=== PATIENT | female | born 1995 | race Caucasian/White ===

== ENCOUNTER 2016-07-16 07:11 | Emergency (ER) | payer BC ==
[2016-07-16 07:37] VITALS: BP 121/64
--- NOTE | 2016-07-16 07:43 | UC ---
Lower Extremity/Ankle HPI - HPI Summary HPI Summary: LEFT ANKLE INJURY.TRIPPED OVER HER DOG AND ROLLED THE ANKLE. MILD SWELLING AND FAINT BRUISING. Rolled laterally. able to bear weight. LMP 06/30, denies . Here with step Dad. - History of Current Complaint Chief Complaint: UCLowerExtremity Stated Complaint: LEFT ANKLE INJURY Time Seen by Provider: 07/16/16 07:19 Hx Last Menstrual Period: 06/30/16 - Allergies/Home Medications Allergies/Adverse Reactions: Allergies Allergy/AdvReac Type Severity Reaction Status Date / Time No Known Allergies Allergy Verified 07/16/16 07:29 Home Medications: Home Medications Controll Patch WEEKLY 07/16/16 [History] Ibuprofen TAB* [Advil TAB*] 400 mg PO Q6H PRN 07/16/16 [History Confirmed ] PARoxetine HCL TAB* [Paxil TAB*] 10 mg PO DAILY 07/16/16 [History Confirmed ] PMH/Surg Hx/FS Hx/Imm Hx Previously Healthy: Yes - Surgical History Surgical History: Yes Surgery Procedure, Year, and Place: APPENDECTOMY - Family History Known Family History: Positive: Cardiac Disease, Diabetes - Social History Alcohol Use: None Substance Use Type: None Smoking Status (MU): Never Smoked Tobacco - Immunization History Vaccination Up to Date: Yes Review of Systems Constitutional: Negative Skin: Negative Eyes: Negative ENT: Negative Respiratory: Negative Cardiovascular: Negative Gastrointestinal: Negative Genitourinary: Negative Motor: Negative Neurovascular: Negative Musculoskeletal: Arthralgia, Edema, Other: - slight bruising and pain. Neurological: Negative Psychological: Negative All Other Systems Reviewed And Are Negative: Yes Physical Exam Triage Information Reviewed: Yes Appearance: Well-Appearing - very pleasant, No Pain Distress, Well-Nourished Vital Signs: Initial Vital Signs Temp 98.9 F 07/16/16 07:31 Pulse 103 07/16/16 07:31 Resp 18 07/16/16 07:31 BP 121/64 07/16/16 07:31 Pulse Ox 99 07/16/16 07:31 Vital Signs Reviewed: Yes Eye Exam: Normal ENT Exam: Normal Dental Exam: Normal Neck exam: Normal Respiratory Exam: Normal Respiratory: Positive: Lungs clear, Normal breath sounds Cardiovascular Exam: Normal Cardiovascular: Positive: RRR, No Murmur, Pulses Normal Abdominal Exam: Normal Musculoskeletal: Positive: Other: - slight tenderness at dorsilateral ankle with very mild bruising and swelling. mortise is intact. CR brisk. toes FROM. slight difficulty with dorsiflexion. nml plantarflexion. sensation is intact. Neurological Exam: Normal Psychological Exam: Normal Skin Exam: Normal Lower Extremity Course/Dx - Course Course Of Treatment: left ankle sprain. TRISTAN wrap applied. good supporting shoe advised - she has good sneakers on today. - Differential Dx/Diagnosis Differential Diagnosis/HQI/PQRI: Contusion, Fracture (Closed), Sprain, Strain, Tendonitis Provider Diagnoses: left ankle lateral sprain Discharge - Discharge Plan Condition: Stable Disposition: HOME Patient Education Materials: Ankle Sprain (ED), Ankle Exercises (GEN) Referrals: Soraida Haq MD [Primary Care Provider] - 3 Days Additional Instructions: Wetalked about the importance for rest and ice frequently (20 mins on/off with towel barrier) and ibuprofen for the first few days. If symptoms worsen or persist, PT may be a good option as well.
--- NOTE | 2016-07-16 08:16 | RAD ---
INDICATION: Left ankle pain. Injury. COMPARISON: None TECHNIQUE: AP, lateral, and oblique views were obtained. FINDINGS: The bony structures, joint spaces, and soft tissues are normal for age. IMPRESSION: NEGATIVE EXAMINATION.
== END 2016-07-16 08:42 | disposition home or self-care (01) ==
LOC: UCCORT 07:11
DX: S93.402A Sprain of unspecified ligament of left ankle, initial encounter (principal); W01.0XXA Fall on same level from slipping, tripping and stumbling without subsequent striking against object, initial encounter; Y93.9 Activity, unspecified; Y92.9 Unspecified place or not applicable
CPT/HCPCS: 99202; G0463

== ENCOUNTER 2016-12-09 12:33 | Emergency (ER) | payer BC ==
[2016-12-09 12:52] VITALS: BP 101/60
[2016-12-09] MEDS ORDERED: methylPREDNISolone 125 MG* 2 ML VIAL IM ONE (13:21)
[2016-12-09] MEDS ORDERED: Famotidine TAB* 20 MG PO ONE (13:22)
--- NOTE | 2016-12-09 13:29 | UC ---
Allergic Reaction HPI - HPI Summary HPI Summary: Patient developed hives yesterday and her hands have swollen, no known allergies. no respiratory distress - History of Current Complaint Chief Complaint: UCSkin Stated Complaint: ALLERGIC REACTION-SKIN Time Seen by Provider: 12/09/16 13:14 Hx Obtained From: Patient Hx Last Menstrual Period: 12/03/16 ?: No Onset/Duration: Sudden Onset Severity Initially: Mild Severity Currently: Moderate Character: Pruritus, Hives Alleviating Factor(s): Nothing Associated Signs And Symptoms: Positive: Rash - Allergies/Home Medications Allergies/Adverse Reactions: Allergies Allergy/AdvReac Type Severity Reaction Status Date / Time No Known Allergies Allergy Verified 12/09/16 12:52 PMH/Surg Hx/FS Hx/Imm Hx Previously Healthy: Yes - Surgical History Surgical History: Yes Surgery Procedure, Year, and Place: APPENDECTOMY - Family History Known Family History: Positive: Cardiac Disease, Diabetes - Social History Alcohol Use: Occasionally Substance Use Type: None Smoking Status (MU): Never Smoked Tobacco - Immunization History Vaccination Up to Date: Yes Review of Systems Constitutional: Negative Skin: Rash Eyes: Negative ENT: Negative Respiratory: Negative Cardiovascular: Negative Gastrointestinal: Negative Genitourinary: Negative Motor: Negative Neurovascular: Negative Musculoskeletal: Negative Neurological: Negative Psychological: Negative All Other Systems Reviewed And Are Negative: Yes Physical Exam Triage Information Reviewed: Yes Appearance: Well-Appearing, Well-Nourished, Pain Distress Vital Signs: Initial Vital Signs Temp 98.9 F 12/09/16 12:49 Pulse 76 12/09/16 12:49 Resp 14 12/09/16 12:49 BP 101/60 12/09/16 12:49 Pulse Ox 98 12/09/16 12:49 Vital Signs Reviewed: Yes Eye Exam: Normal ENT Exam: Normal ENT: Positive: Hearing grossly normal, Pharynx normal, TMs normal Dental Exam: Normal Neck exam: Normal Respiratory Exam: Normal Respiratory: Positive: Chest non-tender, Lungs clear, Normal breath sounds Cardiovascular Exam: Normal Cardiovascular: Positive: RRR, No Murmur, Pulses Normal Abdominal Exam: Normal Abdomen Description: Positive: Nontender, No Organomegaly Bowel Sounds: Positive: Present Musculoskeletal Exam: Normal Neurological Exam: Normal Psychological Exam: Normal Skin Exam: Normal Allergic Reaction Course/Dx - Course Course Of Treatment: hx obtained, exam performed ,meds reviewed, given solumedrol and famotidine - Differential Dx/Diagnosis Provider Diagnoses: urticaria Discharge - Discharge Plan Condition: Stable Disposition: HOME Patient Education Materials: Urticaria (ED) Additional Instructions: 1. Take the medication as prescribed. 2. Increase your fluid intake and get plenty of rest 3. keep the skin cool. 4. If you develop any respiratory issues go straight to the ER.
== END 2016-12-09 13:56 | disposition home or self-care (01) ==
LOC: UCCORT 12:33
DX: L50.9 Urticaria, unspecified (principal)
CPT/HCPCS: 96372; 99212; A9270-GY; G0463; J2930